=== PATIENT | male | born 1970 | race Caucasian/White ===

== ENCOUNTER 2020-08-13 02:45 | Observation (INO) | payer BC, SELFPAY ==
[2020-08-13] VITALS (22 sets, daily range): BP systolic 122–200; BP diastolic 68–105; PULSE 62–94; RESP 14–20; TEMP 36.4–38.8; O2SAT 95–100; BMI 26.0
--- NOTE | ~2020-08-13 | CT_ITS ---
EXAMINATION: CT abdomen pelvis w con DATE: 08/13/2020 04:19 INDICATION: Right lower abdominal pain TECHNIQUE: Computed tomography (CT) of the abdomen and pelvis was performed with 100 mL Omnipaque-350 intravenous contrast. Automated exposure control and iterative reconstruction technique were employe d. The dose-length product was 670.12 mGy-cm. COMPARISON: None FINDINGS: Lung bases are clear. Heart size is normal. No pericardial or pleural effusion. Small sliding-type hi atal hernia. Liver, gallbladder, spleen, pancreas and bilateral adrenal glands are normal. 8 mm nonob structing stone at the lower pole of the right kidney. Bilateral renal cysts measuring up to 1.5 cm. Multiple small calcite appendicoliths including a likely obstructing appendicolith at the base of the appendix which is fluid-filled and dilated to 11 mm with periappendiceal inflammatory stranding cons istent with acute appendicitis. There are few scattered colonic diverticula without adjacent inflamma tory change to suggest diverticulitis. No bowel obstruction. Bladder is normal. No abscess or free in traperitoneal gas or fluid. No pathologically enlarged abdominal or pelvic lymphadenopathy. Moderate lumbosacral spondylosis with mild spondylosis of the more cephalad lumbar and lower thoracic spine. IMPRESSION: 1. Acute appendicitis. Reviewed, dictated and finalized at location A. IMPRESSION: 1. Acute appendicitis.
--- NOTE | 2020-08-13 03:07 | ED.ABDPAIN ---
HPI - Abdominal Pain General Chief Complaint: Abdominal Pain Stated Complaint: right side abd pain x 2 days Time Seen by Provider: 08/13/20 02:54 Source: patient Mode of arrival: ambulatory Limitations: no limitations History of Present Illness HPI narrative: This is a 50 year old male who presents for evaluation of right lower abdominal pain x 2 days. He reports this pain has been constant dull pain that has progressively worsened. He states this pain does not radiate anywhere . He has nausea and fever. He reports having a fever of 101 at home. He denies taking any medication for his fever or pain. He denies back pain, UTI symptoms or scrotal pain or swelling. He denies history of an appendectomy. Related Data Home Medications Medication Instructions Recorded Confirmed No Home Medications 08/13/20 Allergies Allergy/AdvReac Type Severity Reaction Status Date / Time morphine Allergy Rash Verified 08/13/20 04:46 Review of Systems Review of Systems: All systems reviewed & are unremarkable except as noted in HPI and below Constitutional: Constitutional: Denies chills and Reports fever(s) Gastrointestinal: Gastrointestinal: Reports abdominal pain, Denies diarrhea, Reports nausea and Denies vomiting Genitourinary: Genitourinary: Denies hematuria and Denies oliguria Musculoskeletal: Musculoskeletal: Denies back pain PMFSH Past Medical History Medical History (Updated 08/13/20 @ 05:21 by Henrietta Stafford MD) Patient denies medical problems Surgical History Surgical History (Updated 08/13/20 @ 03:10 by Henrietta Stafford MD) No pertinent past surgical history Social History Social History (Updated 08/13/20 @ 03:10 by Henrietta Stafford MD) Smoking status: Never smoker Exam Const: General: alert Orientation/consciousness: patient oriented x3 Eyes: EOM: EOMs intact bilaterally Chest: Chest palpation & inspection: normal inspection of the chest Resp: Effort & Inspection: normal respiratory effort and no retractions Auscultation: clear to auscultation bilaterally Cardio: Rate: regular rate Rhythm: regular rhythm Heart sounds: no murmurs GI: GI Palp: Yes Soft to palpation, Yes Tenderness to palpation present (GI) (RLQ) and No Guarding due to palpation present (GI) Auscultation: normal bowel sounds : General: Yes no CVA tenderness Skin: General skin exam: normal color Rashes: no rashes Neuro: General: patient oriented x3 and moves all extremities Course Reevaluation(s) Reevaluation #1: I Discussed with patient that he was found to have acute appendicitis and he will require surgery. He understands. He last ate and drank last night at 6 pm Date: 08/13/20 Time: 04:50 Consultations Consultation #1: I Discussed case with Dr. Thomas. He agrees with management and he accepts patient to service. Date: 08/13/20 Time: 05:20 Vital Signs Vital signs: Vital Signs Temperature 98.4 F 08/13/20 02:51 Pulse Rate 72 08/13/20 02:51 Respiratory Rate 18 08/13/20 02:51 Blood Pressure 174/85 H 08/13/20 02:51 Pulse Oximetry 100 08/13/20 02:51 Temperature 99.4 F 08/13/20 05:22 Pulse Rate 74 08/13/20 05:22 Respiratory Rate 14 08/13/20 05:22 Blood Pressure 144/81 H 08/13/20 05:22 Pulse Oximetry 99 08/13/20 05:22 MDM - Abdominal Pain Lab Data Attestation: I reviewed the patient's lab results. Result diagrams: 08/13/20 03:23 08/13/20 03:23 Labs: Lab Results 08/13/20 08/13/20 08/13/20 Range/Units 03:23 03:23 03:23 WBC 9.9 (4.5-10.0) K/mm3 RBC 4.76 (4.6-6.20) M/mm3 Hgb 14.3 (14.0-18.0) g/dL Hct 41.5 L (42.0-52.0) % MCV 87.2 (80-100) fl MCH 30.0 (26-34) pg MCHC 34.5 (32-36) g/dl RDW 11.8 (11.5-14.5) % Plt Count 174 (150-375) k/mm3 MPV 11.0 H (7.4-10.4) fl Immature Gran % (Auto) 0.3 (0-0.5) % Neut % (Auto) 84.1 H (45.5-73.1) % Lymph % (Auto) 8.9 L (18.
[2020-08-13] MEDS: ONDANSETRON INJ 4 MG/2 ML VIAL IV PUSH (03:26)
[2020-08-13 03:42] LABS: Basophils Percent Auto 0.2 % (0.2-1.2); Eosinophils Percent Auto 0.4 % (0-4.4); Hematocrit 41.5 % (42.0-52.0); Hemoglobin 14.3 g/dL (14.0-18.0); Immature Granulocyte Absolute 0.03 K/mm3 (0.00-0.031); Immature Granulocyte Percent A 0.3 % (0-0.5); Lymphocytes Absolute Auto 0.88 K/mm3 (0.9-3.2); Lymphocytes Percent Auto 8.9 % (18.3-44.2); Mean Corpuscular HGB Conc 34.5 g/dl (32-36); Mean Corpuscular Volume 87.2 fl (80-100); Monocytes Absolute Auto 0.6 K/mm3 (0.1-0.6); Monocytes Percent Auto 6.1 % (2.6-8.5); Neutrophils Absolute Auto 8.3 K/mm3 (1.3-6.7); Neutrophils Percent Auto 84.1 % (45.5-73.1); Platelet Count Result 174 k/mm3 (150-375); Potassium 4.3 mmol/L (3.4-5.0); Red Blood Count 4.76 M/mm3 (4.6-6.20); Red Cell Distribution Width 11.8 % (11.5-14.5); White Blood Count 9.9 K/mm3 (4.5-10.0)
[2020-08-13 03:45] LABS: Add Urine Microscopic? YES; Appearance Urine Clear (Clear); Bilirubin Urine Negative (Negative); Blood Urine Negative (Negative); Color Urine Yellow (Yellow); Glucose Urine UA Negative (Negative); Ketones Urine 1+ mg/dL (Negative); Leukocyte Esterase Ur Trace LEU/UL (Negative); Mucus Urine Rare /lpf; Nitrate Urine Negative (Negative); Protein Urine 1+ mg/dL (Negative); RBC Urine 0-2 /hpf (0-2); Specific Grav Ur 1.025 (1.001-1.035); WBC Urine 0-3 /hpf
[2020-08-13] MEDS: LACTATED RINGERS 1,000 ML 999 ML IV CONT (03:45)
[2020-08-13 03:59] LABS: Alanine Aminotransferase 18 U/L (4-50); Albumin Level 4.8 g/dL (3.5-5.1); Alkaline Phosphatase 75 U/L (38-126); Anion Gap 9 mmol/L (8-16); Aspartate Amino Transferase 20 U/L (17-59); Bilirubin,Total 0.6 mg/dL (0.2-1.3); Blood Urea Nitrogen 15 mg/dL (9-20); Calcium 9.3 mg/dL (8.4-10.2); Carbon Dioxide 26 mmol/L (22-30); Chloride 106 mmol/L (98-107); Estimated CRCL calculation 93 ml/min; Estimated Glomerular Filt Rate > 60; Glucose 128 mg/dL (75-110); Lipase 67 U/L (23-300); Sodium 141 mmol/L (137-145)
--- NOTE | 2020-08-13 04:08 | PC.NURSE ---
Pt to CT scan via cart.
--- NOTE | 2020-08-13 04:17 | PC.NURSE ---
Patient states he does not want morphine. Patient reports he breaks out in rash when given morphine.
[2020-08-13] MEDS: HYDROmorphone HCL INJ (*CRX) 1 MG/ML SYR 0.5 MG IV PUSH ×2 (05:15→07:55)
[2020-08-13] MEDS: SODIUM CHLORIDE 0.9% IV 1,000 ML 125 ML IV CONT ×3 (06:55→21:30)
--- NOTE | 2020-08-13 06:58 | ADMGEN ---
This patient, Chirag Juárez, was admitted to [facility] Surg Room 310-01. Patient/family oriented to hospital policies and general routines including ID bracelet, bed and alarms, visiting hours, pain management, procedures, bathroom and other care routines, personal items, smoking policy, room service/diet, and visiting hours. Information on how to activate the Rapid Response Team has been discussed. Patient/Family are encouraged to report perceived risks to care and to ask questions if they do not understand what they are told or what they should do.
--- NOTE | 2020-08-13 08:55 | PM.IMHP ---
H&P: HPI History of Present Illness Date/Time: 08/13/20 08:55 Chief Complaint: Abdominal pain Narrative: This is a 50-year-old male who presented to the emergency department for complaints of abdominal pain, nausea, and fever. He reports having an onset of mild generalized abdominal pain 2 days ago. He developed bloating and nausea later in the day as his pain worsened. With time, his pain continued to become more severe with no alleviating factors. He reports the abdominal pain started in the center of his abdomen and began to spread across his entire abdomen as it worsened. He reports having mostly right lower quadrant tenderness though. Yesterday, he also had a fever of 100.9? F. Due to the unrelenting pain, he presented to the ER for further evaluation. CT scan of the abdomen and pelvis showed acute appendicitis with appendicoliths in the appendix, and no evidence of perforation or abscess. Labs were unremarkable. Our service was contacted by the ED physician for surgical evaluation of acute appendicitis. He is now admitted in the setting. The patient is being seen on the medical floor and is still having abdominal pain. This is worse with movement and palpation. No other complaints at this time. No history of abdominal surgery. Review of Systems Constitutional: Constitutional: Reports as per HPI, Denies fatigue, Reports fever(s) and Denies headache(s) Eyes: Eyes: Reports no additional eye complaints and Denies change in vision ENT: Reports Normal hearing present, Denies dizziness and Denies headache(s) Cardiovascular: Cardiovascular: Reports no additional cardiovascular complaints, Denies chest pain, Denies syncope, Denies leg edema and Denies radiating jaw, neck or arm pain Respiratory: Respiratory: Reports no additional respiratory complaints, Denies cough, Denies dyspnea and Denies wheezing Gastrointestinal: Gastrointestinal: Reports as per HPI, Reports no additional gastrointestinal complaints, Reports abdominal pain, Denies melena, Reports bloating, Denies hematochezia, Denies change in bowel habits, Denies change in stool character, Denies diarrhea, Reports nausea and Denies vomiting Genitourinary: Genitourinary: Reports no additional male genitourinary complaints, Denies hematuria and Denies dysuria Musculoskeletal: Musculoskeletal: Reports no additional musculoskeletal complaints, Denies deformity, Denies joint swelling, Denies radiating pain into limb and Denies tingling Integumentary/Breasts: Skin/Breast: Denies wounds and Denies jaundice Neurologic: Reports system reviewed and no additional complaints, except as documented, Reports Normal hearing present, Denies dizziness and Denies tingling Psychiatric: Psychiatric: Denies anxiety and Denies depression [facility] Past Medical History Medical History Patient denies medical problems Surgical History Surgical History No pertinent past surgical history Family History Family History Other No pertinent family history Social History Social History Social History: Lives at home with his and four children. He would like his , Orquidea, to be his medical decision maker if needed. He wishes to be a full code. Smoking status: Never smoker Alcohol intake: current Alcohol use details: Occasional/social, not even on a weekly basis. Substance use: never Living arrangements: with family Occupation/Education: occupation Additional occupation/education comments: Package Clerk Gender identity (if verbalized by the patient): Male Sexual Orientation (if Verbalized by the Patient): Straight or Heterosexual Spiritual care concerns: No Meds Home Medications and Allergies Home Medications Medication Instructions Rec
[2020-08-13] MEDS: LACTATED RINGERS 1,000 ML 30 ML IV CONT ×2 (09:00→13:25)
--- NOTE | 2020-08-13 09:12 | WPDANESEPPF ---
Anes - Initial Pre Proc Eval Procedure: Operation Date: 08/13/20 12:00 Proposed Procedures p Laparoscopic Appendectomy - Trevon Thomas MD Date/Time: 08/13/20 09:12 Surgeon: Trevon Thomas MD Pre Op Diagnosis: acute appendicitis Patient Data Age: 50 Gender: M Height: 1.88 m Weight: 92.1 kg Last Vital Signs Temp 37.1 C 08/13/20 06:50 Pulse 62 08/13/20 07:30 Resp 20 08/13/20 07:30 BP 157/93 H 08/13/20 06:50 Pulse Ox 100 08/13/20 07:30 Allergies Allergy/AdvReac Type Severity Reaction Status Date / Time morphine Allergy Intermediate Hives Verified 08/13/20 07:01 Home Medications Medication Instructions Recorded Confirmed Type No Home Medications 08/13/20 08/13/20 History Laboratory Tests 08/13/20 08/13/20 08/13/20 03:23 03:23 03:23 WBC 9.9 K/mm3 K/mm3 (4.5-10.0) RBC 4.76 M/mm3 M/mm3 (4.6-6.20) Hgb 14.3 g/dL g/dL (14.0-18.0) Hct 41.5 % L % (42.0-52.0) MCV 87.2 fl fl (80-100) MCH 30.0 pg pg (26-34) MCHC 34.5 g/dl g/dl (32-36) RDW 11.8 % % (11.5-14.5) Plt Count 174 k/mm3 k/mm3 (150-375) MPV 11.0 fl H fl (7.4-10.4) Immature Gran % (Auto) 0.3 % % (0-0.5) Neut % (Auto) 84.1 % H % (45.5-73.1) Lymph % (Auto) 8.9 % L % (18.3-44.2) [place] % (Auto) 6.1 % % (2.6-8.5) Eos % (Auto) 0.4 % % (0-4.4) Baso % (Auto) 0.2 % % (0.2-1.2) Lymph # (Auto) 0.88 K/mm3 L K/mm3 (0.9-3.2) [place] # (Auto) 0.6 K/mm3 K/mm3 (0.1-0.6) Eos # (Auto) 0.0 K/mm3 K/mm3 (0-0.3) Baso # (Auto) 0.0 K/mm3 K/mm3 (0.0-0.1) Abs Immat Gran (auto) 0.03 K/mm3 K/mm3 (0.00-0.031) Absolute Neuts (auto) 8.3 K/mm3 H K/mm3 (1.3-6.7) Absolute Nucleated RBC 0.0 K/mm3 K/mm3 (0.0-0.012) Nucleated RBC % 0.0 % % (0.0-0.2) Sodium 141 mmol/L mmol/L (137-145) Potassium 4.3 mmol/L mmol/L (3.4-5.0) Chloride 106 mmol/L mmol/L (98-107) Carbon Dioxide 26 mmol/L mmol/L (22-30) Anion Gap 9 mmol/L mmol/L (8-16) BUN 15 mg/dL mg/dL (9-20) Creatinine 1.00 mg/dL mg/dL (0.7-1.3) Estim Creat Clear Calc 93 ml/min ml/min Estimated GFR > 60 (59 - ) Glucose 128 mg/dL H mg/dL (75-110) Calcium 9.3 mg/dL mg/dL (8.4-10.2) Total Bilirubin 0.6 mg/dL mg/dL (0.2-1.3) AST 20 U/L U/L (17-59) ALT 18 U/L U/L (4-50) Alkaline Phosphatase 75 U/L U/L (38-126) Total Protein 8.0 g/dL g/dL (6.3-8.2) Albumin 4.8 g/dL g/dL (3.5-5.1) Lipase 67 U/L U/L (23-300) Urine Color Yellow (Yellow) Urine Appearance Clear (Clear) Urine pH 7.0 (5.0-9.0) Ur Specific [place] 1.025 (1.001-1.035) Urine Protein 1+ mg/dL H mg/dL (Negative) Urine Glucose (UA) Negative mg/dL mg/dL (Negative) Urine Ketones 1+ mg/dL H mg/dL (Negative) Ur Blood (Man) Negative (Negative) Urine Nitrate Negative (Negative) Urine Bilirubin Negative (Negative) Urine Urobilinogen 4.0 mg/dL H mg/dL (<2.0) Leukocyte Esterase Rfl Trace HONEY/UL H HONEY/UL (Negative) Urine RBC 0-2 /hpf /hpf (0-2) Urine WBC 0-3 /hpf /hpf Urine Mucus Rare /lpf /lpf Patient hx anesthesia problems: none Family hx anesthesia problems: none PMFSH Past Medical History Medical History Patient denies medical problems Surgical History Surgical History No pertinent past surgical history Family History Family History
--- NOTE | 2020-08-13 10:30 | PC.NURSE ---
1030- Patient to pre op room 6 via bed with hard chart at this time.
[2020-08-13] MEDS: HYDROmorphone HCL INJ (*CRX) 1 MG/ML SYR (10:35)
[2020-08-13] MEDS: fentaNYL CITRATE INJ (*CRX) 100 MCG/2 ML VIAL 50 MCG IV PUSH (10:47)
--- NOTE | 2020-08-13 11:45 | WPDHPUPDATE1 ---
History and Physical Update Update Date/Time: 08/13/20 11:45 History and Physical has been reviewed, including an updated exam of the patient. There are NO changes in the patient's condition. Risks, benefits, and alternatives have been discussed and questions answered. Patient agrees to proceed with procedure.
--- NOTE | 2020-08-13 12:16 | PC.NURSE ---
1025 To OR per [ BED], IV [LR ]. Report given to PREOP NURSE GAVE VERBAL AND SENT SBAR ].
[2020-08-13] MEDS: BUPIVACAINE/EPINEPHRINE 0.5% 30 ML VIAL INFILTRATE (12:17)
--- NOTE | 2020-08-13 12:18 | PC.NURSE ---
1043 CALLED ROBEL AND LET HER KNOW PT WAS GOING TO OR NOW.
--- NOTE | 2020-08-13 13:27 | PM.PROC ---
Procedure Note - Detailed Date of procedure: 08/13/20 Pre-op diagnosis: acute appendicitis Post-op diagnosis: same Procedure performed: Laparoscopic Appendectomy Description of procedure: The patient was seen again in the Holding Room. The risks, benefits, complications, treatment options, and expected outcomes were discussed with the patient and/or family. The possibilities of reaction to medication, pulmonary aspiration, perforation of viscus, bleeding, recurrent infection, finding a normal appendix, the need for additional procedures, failure to diagnose a condition, and creating a complication requiring transfusion or operation were discussed. There was concurrence with the proposed plan and informed consent was obtained. The site of surgery was properly noted/marked. The patient was taken to Operating Room, and a time out was preformed which identified this as the proper patient, and the procedure verified as laparoscopic appendectomy, possible open. The patient was placed in the supine position and general anesthesia was induced, along with placement of orogastric tube, SCD hose, and a Chavez catheter. The abdomen was prepped and draped in a sterile fashion. A 5 mm umbilical incision was made and the peritoneal cavity was accessed using the Veress needle technique. Once the abdomen was insufflated to 14 mmHg pressure a 5 mm XL trocar over the 0? 5 mm scope was carefully twisted into the abdomen via the umbilicus. The pneumoperitoneum was then established to steady pressure of 14 mm Hg. A 12 mm laparoscopic port was placed through a transverse suprapubic incision. An additional 5 mm cannula was then placed in the left upper quadrant of the abdomen at a level half way between the umbilicus and the left costal margin under direct vision. A careful evaluation of the entire abdomen was carried out. The cecum was riding slightly high and the appendix was positioned just lateral to the cecum and significantly inflamed. The patient was placed in Trendelenburg and left lateral decubitus position. The small intestines were retracted in the cephalad and left lateral direction away from the pelvis and right lower quadrant. The patient was found to have an enlarged and inflamed appendix that was extending cephalad with its tip pointed toward the right lateral tip of the right lobe of the liver. There was significant surrounding inflammation between it and the lateral sidewall of the cecum and a loop of the small bowel just proximal to the all cecal valve. These things were carefully dissected off of the inflamed appendix. There was no evidence of perforation. The appendix was carefully dissected. Once it was free a 45 mm ethicon endogastroentestinal stapler with a 3.5 mm bowel load was placed through the 12 mm suprapubic port site and across the mesoappendix and the base of the appendix itself. This was fired and hemostasis was checked along the staple line and appeared to be adequate. For this patient, this divided the entire mesoappendix and the base of the appendix at it's junction with the cecum. Minimal appendiceal stump was left in place. There was no evidence of bleeding, leakage, or complication after division of the appendix at its junction with the cecum.. The appendix was then placed in an endobag which had been brought through the 12 mm suprapubic port site. The appendix and the bag were then extracted through this larger port site in the suprapubic position. We then carefully inspected the appendiceal stump we suctioned away any residual fluid along the right cecal gutter and in the pelvis. We allowed the patient the role back slightly to even and the cecum small bowel fell onto the area of the previous site where the enough inflamed appendix had been lying. The suprapubic port was removed and the site was closed using a #1 Polysorb suture passed with a Julian-Seth cone and a needle suture passer and then an 0 Vicryl on a standard needle bourgeois external
--- NOTE | 2020-08-13 19:49 | PC.NURSE ---
1441 Returned from OR per [BED]. Report received from [facility] [employer] IV INFUSING WITHOUT DIFFICULTY[ ].
[2020-08-13] MEDS: SENNA/DOCUSATE SODIUM TABLET 2 TAB PO (22:16)
[2020-08-13] MEDS: ACETAMINOPHEN 500 MG TABLET PO (23:58)
[2020-08-14] MEDS: HYDROmorphone HCL INJ (*CRX) 1 MG/ML SYR IV PUSH (00:28)
[2020-08-14 01:01] VITALS: TEMP 37.2
[2020-08-14 04:00] VITALS: BP 139/79; PULSE 68; RESP 18; TEMP 36.8; O2SAT 98
[2020-08-14] MEDS: SODIUM CHLORIDE 0.9% IV 1,000 ML 125 ML IV CONT (05:45)
[2020-08-14 07:08] LABS: Hematocrit 36.6 % (42.0-52.0); Hemoglobin 12.3 g/dL (14.0-18.0); Mean Corpuscular HGB Conc 33.6 g/dl (32-36); Mean Corpuscular Hemoglobin 29.2 pg (26-34); Mean Corpuscular Volume 86.9 fl (80-100); Mean Platelet Volume 11.5 fl (7.4-10.4); Platelet Count Result 144 k/mm3 (150-375); Red Blood Count 4.21 M/mm3 (4.6-6.20); Red Cell Distribution Width 11.9 % (11.5-14.5); White Blood Count 8.7 K/mm3 (4.5-10.0)
[2020-08-14 07:22] LABS: Anion Gap 6 mmol/L (8-16); Blood Urea Nitrogen 10 mg/dL (9-20); Calcium 8.5 mg/dL (8.4-10.2); Carbon Dioxide 26 mmol/L (22-30); Chloride 107 mmol/L (98-107); Estimated CRCL calculation 102 ml/min; Estimated Glomerular Filt Rate > 60; Glucose 109 mg/dL (75-110); Potassium 3.8 mmol/L (3.4-5.0); Sodium 139 mmol/L (137-145)
[2020-08-14 08:30] VITALS: BP 126/72; PULSE 66; RESP 20; TEMP 37.2; O2SAT 98
--- NOTE | 2020-08-14 11:41 | PM.DS ---
DS: Admitting Diagnosis Admitting Diagnosis Admitting Diagnosis: Acute uncomplicated appendicitis DS: Discharge Diagnosis Discharge Diagnosis (1) Acute appendicitis: Qualifiers: Acute appendicitis type: with localized peritonitis Appendicitis abscess presence: without abscess Appendicitis gangrene presence: without gangrene Appendicitis perforation presence: without perforation Qualified Code(s): K35.30 - Acute appendicitis with localized peritonitis, without perforation or gangrene Code(s): K35.80 - Unspecified acute appendicitis Status: Acute DS: Summary Hospital Course Reason for hospitalization: This is a 50-year-old male who presented to the emergency department for complaints of abdominal pain x 2 days, nausea, and fever. ED workup showed acute uncomplicated appendicitis with appendicoliths on the CT scan. Labs were unremarkable. No signs of perforation on imaging. The patient was admitted for surgical evaluation of acute appendicitis. Hospital Course: After evaluation, the patient was taken for an urgent laparoscopic appendectomy by Dr. Thomas on 08/13/20, which went without any significant immediate complications. No signs of perforation in surgery. The patient tolerated surgery well and was kept overnight for observation. Labs repeated this morning and were unremarkable. His vital signs are stable. He is tolerating a diet and tolerating activity. Reports passing gas today. No nausea, vomiting, or any other complaints. He states his incisional pain is just tenderness that is well-controlled. The patient has been advanced to a regular diet and is tolerating this well. Will plan to discharge him today as he is stable. F/u in [address] Thomas in the office. Status at Discharge Functional status at discharge: independent ambulation Overall status at discharge: patient is progressing back to baseline Time Spent with Patient Time attestation: Total time spent providing and/or coordinating discharge services: Time spent: Less than 30 minutes Exam Const: General: comfortable, no acute distress, alert and awake Orientation/consciousness: patient oriented x3 Resp: Effort & Inspection: normal respiratory effort Auscultation: clear to auscultation bilaterally Cardio: Rate: regular rate Rhythm: regular rhythm GI: Inspection: non-distended and incision (Abdominal incisions clean and dry, glue intact.) GI Palp: Yes Soft to palpation and Yes Tenderness to palpation present (GI) (incisional) Auscultation: normal bowel sounds Skin: General skin exam: normal color Neuro: General: patient oriented x3, moves all extremities and no focal motor deficits Speech: No Abnormal speech present Extrem: General: no clubbing, cyanosis or edema and no calf tenderness Psych: Mental Status: mental status grossly normal Insight: Good insight present (Psych) Judgement: Good judgement present (Psych) DS: Data Data Completed and Pending Pending studies at discharge: Pending at discharge 08/13/20 12:31 Surgical [PTH] Routine Labs on day of discharge: Labs from last 24 hours 08/14/20 08/14/20 06:07 06:07 WBC 8.7 RBC 4.21 L Hgb 12.3 L Hct 36.6 L MCV 86.9 MCH 29.2 MCHC 33.6 RDW 11.9 Plt Count 144 L MPV 11.5 H Sodium 139 Potassium 3.8 Chloride 107 Carbon Dioxide 26 Anion Gap 6 L BUN 10 D Creatinine 0.90 Estim Creat Clear Calc 102 Estimated GFR > 60 Glucose 109 Calcium 8.5 Procedures/Treatments: Procedures Operation Date: 08/13/20 12:00 Actual Procedures Side Surgeon p Laparoscopic Appendectomy Not Applicable Trevon Thomas MD Imaging Radiologist's impression: ITS Impressions Abdomen/Pelvis CT 08/13/20 07:46 IMPRESSION: 1. Acute appendicitis. Discharge Plan Discharge Attending physician on discharge: Trevon Thomas Discharging Clinician: Mechelle Abad Anticipated Discharge Date/Time: 08/14/20
[2020-08-14 11:50] VITALS: TEMP 37.7
[2020-08-14] MEDS: ACETAMINOPHEN 500 MG TABLET PO (11:50)
[2020-08-14 12:00] VITALS: BP 136/82; PULSE 73; RESP 20; TEMP 37.7; O2SAT 97
[2020-08-14 12:42] VITALS: TEMP 37.4
== END 2020-08-14 16:45 | disposition home or self-care (01) ==
LOC: ANHED 05:21 → ANH3MEDSUR 05:59
PROVIDERS: Admitting Provider Surgery; Emergency Provider General Practice; PCP Internal Medicine; Visit Provider Surgery
PROC: 0DTJ4ZZ Resection of Appendix, Percutaneous Endoscopic Approach (ICD-10-PCS; CPT 44970; principal; 2020-08-13 12:00)
DX: K35.30 Acute appendicitis with localized peritonitis, without perforation or gangrene (principal)
CPT/HCPCS: 44970; 36415; 74177; 80048; 80053; 81001; 83690; 85025; 85027; 88304; 96361; 96365; 96375; 96376; 99285; A9270; G0378; J0131; J0330; J1100; J1170; J1200; J2250; J2405; J2543; J2704; J3010; J7030; J7120; Q9967